=== PATIENT | male | born 1960 | race Caucasian/White ===

== ENCOUNTER 2018-03-30 23:35 | Emergency (ER) | payer OTHER ==
--- NOTE | 2018-03-30 23:54 | EDPHY ---
H & P Time Seen by Provider: 03/30/18 23:43 HPI/ROS: 57 yo M presents c/o hit with hockey stick to left face, here to see if lacerations need sutures. He does not recall his last tetanus shot. No eye pain or blurred vision. Review of systems As per HPI General no fever no chills no weakness HEENT no eye pain no eye discharge. 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 Smoking Status: Never smoked Physical Exam: 57 yo M in nad, non toxic appearance, afebrile nc face with 1 cm superficial laceration mid forehead and 1.25cm left infraorbital laceration non gaping eomi pupils reactive neck supple, no midline tenderness lungs cta bilat heart rrr neuro alert and oriented , normal speech, normal gait Constitutional: Initial Vital Signs Temperature (C) 36.6 C 03/30/18 23:44 Heart Rate 95 03/30/18 23:44 Respiratory Rate 18 03/30/18 23:44 Blood Pressure 116/74 03/30/18 23:44 O2 Sat (%) 92 03/30/18 23:44 O2 Delivery Mode Room Air Allergies/Adverse Reactions: No Known Allergies Allergy (Unverified 03/30/18 23:35) Home Medications: Medication Instructions Recorded NK [No Known Home Meds] 03/30/18 Medical Decision Making Procedures: Procedure note-laceration The wound was irrigated with copious amounts of saline. Lidocaine 1% was used for local anesthetic. 5 simple interrupted sutures were placed. 6-0 Prolene was used. Patient tolerated procedure well. ED Course/Re-evaluation: pt seen and evaluated for facial laceration from hockey stick initially my plan was to cleanse wounds and dermabond the one wound that required repair left infraorbital After dermabonding the wound and allowing it to dry, I found the patients eyelashes had become glued to the wound. I immediately applied bacitracin a petroleum based ointment to the area. Gradually the glue was able to be removed. Prior to complete removal I applied erythromycin eye ointment to the lids and lashes, allowed that to sit for 15 minutes and then we were able to completely open eye and wash off both the wound and the eyelid. I discussed with the patient rather than risk this mishap again, I would suture the wound after we thoroughly cleansed it. He was agreeable to this plan. I also apologized profusely for the accidental gluing of his eyelashes. Imp left infraorbital facial laceration sutured repair Plan DC home Return for suture removal in 5-7 days. Differential Diagnosis: Differential diagnosis considered but not limited to: Facial laceration, blowout injury, periorbital contusion - Data Points Medications Given: Discontinued Medications Diphtheria/Tetanus/Acell Pertussis (Boostrix) 0.5 ml IM .ONCE ONE Stop: 03/30/18 23:58 Last Admin: 03/31/18 00:03 Dose: 0.5 ml Erythromycin (Erythromycin 0.5%) 1 amanuel EACHEYE ONCE ONE Stop: 03/31/18 01:38 Last Admin: 03/31/18 01:45 Dose: 1 amanuel Departure - Departure Disposition: Home, Routine, Self-Care Clinical Impression: Laceration of face, multiple sites Condition: Good Instructions: Care For Your Stitches (ED), Facial Laceration (ED) Additional Instructions: Return in 5-7 days for suture removal. Referrals: Patient,NotPresent [Primary Care Provider] - As per Instructions
[2018-03-30] MEDS ORDERED: TDAP ADULT 0.5 ML INJ (BOOSTRIX) IM ONE (23:57)
[2018-03-31] MEDS ORDERED: SKIN ADHESIVE (DERMABOND) 1 EACH TP ONE (00:10)
[2018-03-31] MEDS ORDERED: ERYTHROMYCIN 0.5% 1 GM OPHT.OINT EACHEYE ONE (01:37)
[2018-03-31 02:28] VITALS: BP 120/65
[2018-03-31] MEDS ORDERED: ERYTHROMYCIN 0.5% 1 GM OPHT.OINT ONE (02:29)
== END 2018-03-31 02:32 | disposition home or self-care (01) ==
LOC: CED 23:35
PROC: 0HQ1XZZ Repair Face Skin, External Approach (ICD-10-PCS; principal; 2018-03-30)
DX: S01.81XA Laceration without foreign body of other part of head, initial encounter (principal); W22.8XXA Striking against or struck by other objects, initial encounter; Y92.9 Unspecified place or not applicable; Y93.22 Activity, ice hockey; Z23 Encounter for immunization